=== PATIENT | female | born 1995 | race Caucasian/White ===

== ENCOUNTER 2024-04-12 22:18 | Emergency (ER) | payer OTHER ==
[~2024-04-12] VITALS: Ht 172.7 cm; Wt 65.8 kg
[~2024-04-12 22:18] MED LIST: CHLO10 PO; HYDPAM25 PO; LORA1 PO; Nuvaring Vagin1 EACH VG
[2024-04-12 22:29] VITALS: BP 141/98
[2024-04-12] MEDS ORDERED: HYDROcodone 5-APAP 325 TAB PO ONE (23:20)
[2024-04-12] MEDS ORDERED: AMOCLA875 PO (23:21)
== END 2024-04-12 23:47 | disposition home or self-care (01) ==
LOC: ER 22:18
DX: K04.7 Periapical abscess without sinus (principal); Z88.1 Allergy status to other antibiotic agents; F17.200 Nicotine dependence, unspecified, uncomplicated
CPT/HCPCS: A9270